=== PATIENT | male | born 1950 | race Caucasian/White ===

== ENCOUNTER 2016-10-13 23:15 | Observation (INO) | payer OTHER, MEDICARE ==
[~2016-10-13] VITALS: Ht 170.2 cm; Wt 91.3 kg
[2016-10-13 23:25] VITALS: BP 153/65; PULSE 78; RESP 11; O2SAT 99
--- NOTE | 2016-10-13 23:32 | ED.REPORT ---
HPI-General Illness Date of Service Oct 13, 2016 ED Provider: Elton Glover MD Patient is an otherwise healthy 65 year old male who presents to the ED via EMS complaining of an episode of palpitations that awoke him from his sleep at 2230 this evening. The episode lasted for 15-20 minutes. He reported being asymptomatic but had an episode upon subsequent examination. Associated symptoms include lightheadedness. He denies chest pain, SOB, extremity swelling , or any other symptoms. Per family, he has not been feeling well for the past month. His symptoms have included palpitations and nausea. His PCP told him that his red blood cell count has decreased by 7-8 points from a year ago. An echocardiogram from a year ago reports that he has aortic stenosis. Nursing Notes Stated Complaint: HEART RACING Chief Complaint: Chest Pain Nursing Notes Reviewed: Yes Allergies: Coded Allergies: No Known Allergies (Unverified , 10/13/16) General Time Seen by MD: 23:30 Chief Complaint Other (Palpitations ) Hx Obtained From: Patient Arrived By: Ambulance Sudden in Onset?: Yes Onset Occurred: 1 - 4 hours ago Similar Sx Previous: Yes Past Medical History ECHO 08/30/15: Interpretation Summary The left ventricle is normal in size. The ejection fraction is estimated to be 55-60%. There appears to be severe mid posterolateral hypokinesis. The right ventricle is normal in size and function. The left atrium is mildly dilated. The aortic valve appears to be bicuspid. The aortic valve is moderately calcified. The peak aortic velocity is 388.4 cm/sec. The aortic valve mean gradient is 36.6 mmHg. The aortic valve area is 1.2 sq cm by planimetry. The calculated aortic valve area is 1.2 sq cm. There is moderate aortic stenosis based on above criterias. The aortic root is mildly dilated. The ascending aorta is moderately enlarged. The IVC is of normal diameter and collapses greater than 50% with a sniff. This suggests a low right atrial pressure of 3 mm Hg. There is a trivial to small pericardial effusion noted. There are no echocardiographic indications of cardiac tamponade. I do not see any obvious vegetation. Consider IDA and aorta evauation by CT or MR. If indeed patient has bicuspid aortic valve, consider family members screening. Past Medical History Aortic stenosis Past Surgical History None reported Smoking History Unknown if Ever Smoker Social History Other Social History: Good social support Ambulatory Status Independent Review of Systems Full Review of Systems Respiratory: Denies: Shortness of breath Cardiovascular: Reports: Palpitations, Denies: Chest pain Musculoskeletal: Denies: Extremity swelling Neurologic: Reports: Lightheaded Complete sys rev & neg: except as marked. Physical Exam Nursing note and vitals reviewed. Constitutional: Well-developed, well-nourished. Not diaphoretic. Head: Normocephalic and atraumatic. Mouth/Throat: Oropharynx is clear and moist. No oropharyngeal exudate. Eyes: EOM are normal. Pupils are equal, round, and reactive to light. Neck: Supple, no tracheal deviation. Cardiovascular: Normal rate, regular rhythm. Equal and intact distal pulses throughout. 2/6 systolic murmur. Pulmonary/Chest: Effort normal and breath sounds normal. No respiratory distress. Abdominal: Soft. No distension. There is no tenderness rebound, or guarding. Bowel sounds present. Musculoskeletal: Range of motion grossly intact, moving all extremities. No edema or tenderness appreciated. Neurological: AOx3. Grossly nonfocal exam. Strength and sensation intact and equal to bilateral upper and lower extremities. Skin: Warm and dry, no rashes or pallor appreciated. Psychiatric: Appropriate mood and affect. Behavior appears normal. Vital Signs Vital Signs Date Time Temp Pulse Resp B/P Pulse Ox O2 Delivery O2 Flow Rate FiO2 10/14/16 02:11 36.8 77 9 138/63 98 Room Air 10/14/16 01:12 76 10 133/58 98 Room Air 10/14/16 00:47 79 10 133/53 98 Room Air 10/13/16 23:25 36.7 78 11 153/65 99 Room Air Initial VS: Reviewed, Vital signs abnormal Interpretation & Diagnostics Lab Results Interpretation Result Diagram: 10/13/16 2330 10/13/16 2330 Test 10/13/16 23:30 10/14/16 02:00 White Blood Count 5.7th/mm3 (3.8-10.1) Red Blood Count 4.22mil/mm3 (4.40-5.80) Hemoglobin 13.5g/dL (13.8-17.2) Hematocrit 39.3% (41.0-50.0) Mean Corpuscular Volume 93.1fL (81-100) Mean Corpuscular Hemoglobin 32.0pg (27.0-35.0) Mean Corpuscular Hemoglobin Concent 34.4% (32.0-37.0) Red Cell Distribution Width 12.4% (12.3-15.4) Platelet Count 258bil/L (150-400) Neutrophils (%) (Auto) 39.1% (40-74) Lymphocytes (%) (Auto) 40.8% (14-46) Monocytes (%) (Auto) 14.8% (4-12) Eosinophils (%) (Auto) 4.2% (0-5) Basophils (%) (Auto) 0.9% (0-3) Hold Purple Top Tube Received (Received) Hold Blue Top Tube Received (Received) Sodium Level 134mEq/L (134-144) Potassium Level 3.8mEq/L (3.5-5.2) Chloride Level 97mEq/L (97-108) Carbon Dioxide Level 24mmol/L (18-29) Blood Urea Nitrogen 9mg/dL (8-27) Creatinine 0.79mg/dL (0.76-1.27) Estimat Glomerular Filtration Rate 105mL/min (>59) Glucose Level 107mg/dL (60-99) Calcium Level 9.2mg/dL (8.5-10.1) Magnesium Level 2.4mg/dL (1.6-2.6) Total Bilirubin 0.3mg/dL (0.0-1.2) Aspartate Amino Transf (AST/SGOT) 22U/L (0-50) Alanine Aminotransferase (ALT/SGPT) 25U/L (0-44) Alkaline Phosphatase 58U/L (25-160) Troponin T 0.010ug/L (0.0-0.011) Total Protein 7.0g/dL (6.4-8.4) Albumin 4.3g/dL (3.4-5.0) Hold Red Top Tube Received (Received) Hold [place] Top Tube Received (Received) Hold Urine Received (Received) ECG Interpretation ECG Interpretation: Sinus rate 78 Time: 23:24 Interpreted by: ED physician X-Ray Chest Interpretation Chest Xray Interpretation: no acute abnormalities no obvious consolidation View: Portable, 1 view Interpretation / Wet Read by: Interpret - ED physician Re-Eval/Medical Decision Med Decision/Clinical Course 65-year-old male presenting to the ED for evaluation of palpitations and near- syncope. The patient reportedly has an unremarkable past medical history with the exception of an echocardiogram last year that showed severe mid posterolateral hypokinesis and moderate aortic stenosis. His clinical history seems consistent with possible SVT, however he had an episode here without change on the monitor. No chest pain, no acute ischemic changes on EKG, initial troponin negative. However, given his echocardiographic findings in the past, plan admission for further evaluation and management, cardiology consultation. Patient agreeable to the plan as stated, no further questions. Time of Eval: 01:39 Re-Evaluation/Progress Note: Discussed plan for admission. Patient understands and agrees with plan. All questions addressed at this time. Consultation #1: Referral / Consult Name: Michelle Rubio MD Consulted With: Cardiology Call Returned at: 01:58 Wildlife Biology Technician: Agrees with eval, Agrees with plan Note: Discussed pt's case. Will consult Consultation #2: Referral / Consult Name: Nguyễn Jewell MD Consulted With: Hospitalist Call Returned at: 14:08 Wildlife Biology Technician: Will see patient, Agrees with eval, Agrees with plan, Accepts admit Note: Discussed pt's case. Accepts admit. Counseled Regarding: Diagnosis, Lab results, Need for admission Discharge & Departure Primary Impression: Palpitations Additional Impression: Near syncope Disposition: ADMITTED TO HOSPITAL Discharge Condition All VS Reviewed: Yes Condition: Stable Referrals: Jose Alvarado DO (PCP) Scribe Attestation Portions of this note were transcribed by Aliyah Navarrete. I, Dr. Glover personally performed the history, physical exam and medical decision-making; I reviewed and confirmed the accuracy of the information in the transcribed note. Signed by: Aliyah Navarrete 10/14/16, [id number] copies to: Jose Alvarado William B MD Oct 13, 2016 23:32 ALIYAH NAVARRETE Oct 14, 2016 00:43
[2016-10-14] VITALS (12 sets, daily range): BP systolic 111–138; BP diastolic 53–74; PULSE 61–79; RESP 9–20; O2SAT 97–99
[2016-10-14 00:16] LABS: BASOPHILS % (AUTO) 0.9 % (0-3); EOSINOPHILS % (AUTO) 4.2 % (0-5); MONOCYTES % (AUTO) 14.8 % (4-12); Mean Corpuscular Volume 93.1 fL (81-100); NEUTROPHILS % (AUTO) 39.1 % (40-74); Platelet Count 258 bil/L (150-400)
[2016-10-14 00:28] LABS: TROPONIN T 0.01 ug/L (0.0-0.011)
[2016-10-14 00:39] LABS: Magnesium 2.4 mg/dL (1.6-2.6)
[2016-10-14] MEDS ORDERED: Alum-Mag Hydrox-Simeth 30 mL Suspension PO PRN (02:30)
[2016-10-14] MEDS ORDERED: Ondansetron 2 mg/mL 2 mL Inj IVPUSH PRN (02:30)
[2016-10-14] MEDS ORDERED: Polyethylene Glycol (PEG) 17 Gm Powder PO PRN (02:30)
[2016-10-14] MEDS ORDERED: 0.9% Sodium Chloride 1,000 ML IV ONE (02:35)
--- NOTE | 2016-10-14 02:59 | PCM.HPMED ---
Subjective Date of Service Oct 14, 2016 Primary Provider: Admitting Physician: Nguyễn Jewell MD Primary Care Physician: Salomón Silverman MD Attending Physician: Nguyễn Jewell MD Chief Complaint: palpitations History of Present Illness: Extremity 5-year-old gentleman with history of aortic stenosis presents of [facility] emergency department via EMS after waking up with sensation of palpitations, diaphoresis, lightheadedness. Symptoms abated before EMS arrived. States he had a similar episode in the past however did not seek medical attention at the time. Non-smoker, no EtOH, or drug use reported. He has no medications and only takes "a liquid antacid. He additionally reports some queasiness but would not call it nausea area and no diarrhea or constipation, no rashes, no weight loss, no heat or cold intolerance, no lani chest pain. States a year ago they found traces of blood in his stool, and is still waiting for colonoscopy. In the emergency department is afebrile, heart rate 78, respiratory rate 11, blood pressure 153/65, pulse ox 99% on room air. EKG showed normal sinus rhythm, no signs of acute ischemia or infarct, normal axis, no AVCD. CMP and CBC were unremarkable, troponin negative Check stat x-ray did not show any acute cardiopulmonary process All in the department patient remained a symptomatically. Cardiology agronomy advisor was consulted, agreed the patient should be monitored overnight and will be seen in the morning. Review of Systems: A comprehensive review of systems was conducted with the patient and found to be negative except as above in the history of presenting illness. Allergies Coded Allergies: No Known Allergies (Unverified , 10/13/16) Home Medications "Liquid antacid" PMH History of hypertension, no longer on medication. Surgical History Ganglion cyst removal from right wrist in childhood Family History Mother needed a valve replacement, and past during recovery from the operation Father is alive, no known medical problems. Social History Hx Alcohol Use: Yes (no drink in one year) Hx Substance Use: No Hx Tobacco Use: No Smoking Status: Unknown if Ever Smoker Living Arrangement: with Family Exam Vital Signs Vital Sign - Last Date Time Temp Pulse Resp B/P Pulse Ox O2 Delivery O2 Flow Rate FiO2 10/14/16 02:11 36.8 77 9 138/63 98 Room Air Exam General: Laying in bed, no apparent distress. HEENT: Normocephalic, atraumatic, EOMI grossly, Cardiovascular: Regular rate and rhythm, 3 out of 6 blowing systolic murmur best at right upper sternal border, peripheral pulses 2/4 equal bilaterally Pulmonary: Clear to auscultation bilaterally, no W/R/R. Abdominal: Soft to palpation, bowel sounds present 4, no hepatosplenomegaly. Negative rebound. Extremities: No edema appreciated. No tenderness, asymmetry. Neuro: Neurologically grossly intact, strength is equal bilaterally upper and lower extremities. MSK: Gait is normal, able to move extremities on their own volition, strength 5 out of 5 equal bilaterally to upper and lower extremities. Lab and Diagnostics Result Diagram: 10/13/16 2330 10/13/16 2330 X-Rays, CTs and MRIs Chest Xray Interpretation: no acute abnormalities no obvious consolidation View: Portable, 1 view Interpretation / Wet Read by: Interpret - ED physician 12-lead ECG Sinus rhythm, heart rate 78, normal axis, inverted T waves V1, Cardiac Echo Impressions ECHO 08/30/15: Interpretation Summary The left ventricle is normal in size. The ejection fraction is estimated to be 55-60%. There appears to be severe mid posterolateral hypokinesis. The right ventricle is normal in size and function. The left atrium is mildly dilated. The aortic valve appears to be bicuspid. The aortic valve is moderately calcified. The peak aortic velocity is 388.4 cm/sec. The aortic valve mean gradient is 36.6 mmHg. The aortic valve area is 1.2 sq cm by planimetry. The calculated aortic valve area is 1.2 sq cm. There is moderate aortic stenosis based on above criterias. The aortic root is mildly dilated. The ascending aorta is moderately enlarged. The IVC is of normal diameter and collapses greater than 50% with a sniff. This suggests a low right atrial pressure of 3 mm Hg. There is a trivial to small pericardial effusion noted. There are no echocardiographic indications of cardiac tamponade. I do not see any obvious vegetation. Assessment & Plan 65-year-old gentleman with distant history of hypertension, aortic stenosis, presents with 15-20 minute episode of palpitations with lightheadedness and dizziness, Acute palpitations, not present on admission, active Rhythm throughout ER visit was sinus, no reproduction of symptoms in the presence of known aortic stenosis. Symptoms coincided with palpitations, differentials includes nonsustained SVT, or VT, paroxysmal A. fib, panic attack, Troponins negative, EKG did not show any signs of infarction or ischemia, no AV conduction delay. TSH + T4 pending Troponin negative Dr. Fernández cardiology consulted, per ER physician documentation increased to see patient in the morning. Echocardiogram Place on telemetry EKG, chest x-ray were reviewed fully and independently. Near syncope, not present on admission, active. Evaluation as above Repeat CMP and CBC in the morning Moderate Aortic stenosis, Chronic will follow echo to determine any advancement Patient admitted under separation status with expected length of stay < 2 midnights for severity of present symptoms, complexities of treatment plan and risk for adverse events Pain Evaluation: Adequate Pain Control GI Prophylaxis: Not indicated VTE Prophylaxis: Sub-Q Heparin (Unfractionated) Resuscitation Status: CPR: Attempt Resuscitation Attending Statement The patient was seen and examined together with Dr. Puentes on 10/14 and I agree with the history, exam and plan as outlined in the note above. Param Gallegos DO Oct 14, 2016 02:59 Nguyễn Jewell MD Oct 14, 2016 06:39
[2016-10-14] MEDS: Heparin 5,000 Unit/mL Inj SUBQ SCH ×3 (03:30→18:43)
[2016-10-14 03:48] LABS: APPEARANCE,URINE CLEAR (CLEAR,HAZY); COLOR,URINE STRAW (YELLOW)
[2016-10-14 03:49] LABS: OCCULT BLOOD,URINE NEGATIVE (NEGATIVE); UROBILINOGEN,URINE NORMAL (NORMAL)
--- NOTE | 2016-10-14 04:57 | NUR ---
Admit: Pt arrived to room 3007 from ED via stretcher; ambulated self to scale and bed, no family at bedside. Pt AOx3, appropriate with questions, tele, IVF started. Pt denies taking any home medications, denies pain, chest pain and SOB. Pt pleasant and cooperative with care. Admit complete.
[2016-10-14 05:20] LABS: BASOPHILS % (AUTO) 0.7 % (0-3); EOSINOPHILS % (AUTO) 4.2 % (0-5); MONOCYTES % (AUTO) 13.4 % (4-12); Mean Corpuscular Hemoglobin 32.4 pg (27.0-35.0); NEUTROPHILS % (AUTO) 52.6 % (40-74); Platelet Count 248 bil/L (150-400)
[2016-10-14 05:52] LABS: Magnesium 2.4 mg/dL (1.6-2.6); TROPONIN T 0.01 ug/L (0.0-0.011)
[2016-10-14] MEDS: 0.9% Sodium Chloride 1,000 ML IV SCH ×3 (08:23→22:30)
--- NOTE | 2016-10-14 08:27 | DRSVH ---
PROCEDURE: X-RAY CHEST ONE VIEW, PORTABLE ([id number]) INDICATIONS: chest pain TECHNIQUE: One view of the chest was acquired. COMPARISON: [facility], CR, XR CHEST 2VW, 07/24/2015, 9:52. FINDINGS: Surgical changes and devices: None. Lungs and pleura: No pleural effusions or pneumothorax. Focal patchy consolidative opacity projects in the left lung base, measuring approximately 2 cm. Mediastinum: Mediastinal contours appear normal. Heart size is normal. Bones and chest wall: No suspicious bony lesions. Overlying soft tissues appear unremarkable. IMPRESSION: Focal left basilar patchy consolidative opacity which could represent bronchopneumonia although recom mend clinical correlation, and radiographic followup in one month to document resolution after treatm ent to exclude pulmonary nodule. Dictated by: Israel Mckenzie M.D. on 10/14/2016 at 8:24 Approved by: Israel Mckenzie M.D. on 10/14/2016 at 8:25
--- NOTE | 2016-10-14 09:56 | PCM.CHPCAR ---
Consult Subjective Date of service Oct 14, 2016 Date of admit Oct 14, 2016 at 02:26 Provider Requesting Consult Requesting Provider: Param Gallegos DO Primary Care Physician Primary Care Physician: Salomón Silverman MD Chief Complaint Palpitations History of Present Illness This is a pleasant 65 y/o male with suddent onset of palpitations last night for the first time. He has had palpitations that were not sustained in the past. But, this one lasted for about 5-10 min w/o stopping. He had lightheadedness associated with palpitations. He denied any CP, SOB, near syncope or syncope. He has chronic anemia as per patient. He is being tentatively scheduled for upper and lower scope. He sees Dr. Silverman. He denies any orthopnea or PND. He has hx of moderate aortic stenosis and regional wall motion abnormalities based on a prior echo in 2016. He has not had any ischemic workup in the past. He denies any exertional chest pain. His monitor has not shown any SVTs or Afib. He was on ASA 81 mg once a day but due to his worsening anemia, his ASA was discontinued. He is otherwise feeling well and so far his EKGs have not shown any significant arrhythmia. Review of Systems General: Denies: Change in exercise capacity Energy Fatigue Eyes: Denies: Problem or recent change in eyes Ears, Nose, Mouth & Throat: Denies: Any hearing loss Epistaxis or hoarseness Respiratory: Denies: Orthopnea or PND Significant dyspnea Cardiovascular: Reports: Lightheadedness Skipped beats Tachycardia Denies: Chest Discomfort Presyncope Syncopal episodes Gastrointestinal: Reports: Abdominal fullness Dyspepsia Denies: Black stools GI blood loss Melana Recent melena or hematochezia Ulcers or GI blood loss Genitourinary: Denies: Hematuria Prostate symptoms Urinary symptoms Musculoskeletal: Reports: Joint pain Denies: Joint swelling Neurological: Denies: Any history of stroke/TIA symptoms Dizziness Expressive dysphasia Memory deficit Personality change Psychiatric: Denies: Anxiety Depression Endocrine: Denies: Heat or cold intolerance Polyuria or Polydipsia Integumentary: Denies: Any change in hair or nails Any rash or skin lesions Hematologic/Immunologic: Reports: Recent history of anemia Denies: Risk factors for HIV Unusual bruising or bleeding PMH Past Medical History History of hypertension, no longer on medication. No Active Prescriptions or Reported Meds Current Inpatient Medications Current Medications Heparin Sodium (Porcine) 5000 unit 5,000 unit Q8 SUBQ Last administered on 03:30; Admin Dose 5,000 UNIT; Start 10/14/16 at 02:30 Sodium Chloride 1,000 ml @ 100 mls/hr Q10H IV Last administered on 10/14/16 08 :23; Admin Dose 100 MLS/HR; Start 10/14/16 at 02:30 Al Hydrox/Mg Hydrox/Simethicone 30 ml Q6H PRN PO; Start 10/14/16 at 02:30 Ondansetron HCl 4 to 8 mg Q4H PRN IVPUSH; Start 10/14/16 at 02:30 Senna 17.2 mg BID PRN PO; Start 10/14/16 at 02:30 Polyethylene Glycol 17 gm DAILY PRN PO; Start 10/14/16 at 02:30 Allergies: Coded Allergies: No Known Allergies (Unverified , 10/13/16) Family History Family History Mother needed a valve replacement, and past during recovery from the operation Father is alive, no known medical problems. Social History Hx Alcohol Use: No (no drink in one year)Hx Substance Use: NoHx Tobacco Use: No Smoking Status: Unknown if Ever Smoker Living Arrangement: with Family Exam Vital Signs Vital Sign - Last Date Time Temp Pulse Resp B/P Pulse Ox O2 Delivery O2 Flow Rate FiO2 10/14/16 08:57 36.6 72 20 138/74 98 Room Air Intake and Output 10/13/16 10/13/16 10/14/16 Cumulative From/Thru 15:00 23:00 07:00 10/13/16 23:25 - 10/14/16 05:40 Intake Total 200 ml 200 ml Output Total 300 ml 300 ml Balance -100 ml -100 ml Intake Oral 200 ml 200 ml Output Urine Total 300 ml 300 ml # Bowel Movements 0 0 General: Pleasant Cooperative Skin: Warm & dry to touch Head: Normocephalic No tenderness Eye: EOMS intact No arcus or xanthelasma Neck: No JVD No bruits Ears, Nose & Throat: Ears no gross abnormalities Nose no gross abnormalities Chest: Clear auscultation w/o rales/wheeze Cardiac: Normal non-displaced apical impulse Normal S1 and S2 Systolic murmur (3/6) Pulses: Pulses full/equal all extremities Abdomen: Soft, non-distended, non-tender Without masses or organomegally Lymphatic: No palpable lymphadenopathy Extremities: Warm w/o deformities,erythema noted Neurological: Alert & oriented No gross motor or sensory deficits Psychological: Affect & interaction appropriate Memory grossly intact Lab and Diagnostics Labs CBC Test 10/13/16 23:30 10/14/16 05:07 Hold Purple Top Tube Received (Received) White Blood Count 4.3th/mm3 (3.8-10.1) Red Blood Count 4.01mil/mm3 (4.40-5.80) Hemoglobin 13.0g/dL (13.8-17.2) Hematocrit 37.3% (41.0-50.0) Mean Corpuscular Volume 93.0fL (81-100) Mean Corpuscular Hemoglobin 32.4pg (27.0-35.0) Mean Corpuscular Hemoglobin Concent 34.9% (32.0-37.0) Red Cell Distribution Width 12.2% (12.3-15.4) Platelet Count 248bil/L (150-400) Neutrophils (%) (Auto) 52.6% (40-74) Lymphocytes (%) (Auto) 29.1% (14-46) Monocytes (%) (Auto) 13.4% (4-12) Eosinophils (%) (Auto) 4.2% (0-5) Basophils (%) (Auto) 0.7% (0-3) CMP Test 10/13/16 23:30 10/14/16 05:07 Thyroid Stimulating Hormone (TSH) 5.880uIU/mL Free Thyroxine 1.25ng/dL Hold Red Top Tube Received Hold Liguori Top Tube Received Sodium Level 137mEq/L Potassium Level 4.4mEq/L Chloride Level 102mEq/L Carbon Dioxide Level 23mmol/L Blood Urea Nitrogen 8mg/dL Creatinine 0.69mg/dL Estimat Glomerular Filtration Rate 122mL/min Glucose Level 116mg/dL Calcium Level 8.8mg/dL Magnesium Level 2.4mg/dL Total Bilirubin 0.3mg/dL Aspartate Amino Transf (AST/SGOT) 20U/L Alanine Aminotransferase (ALT/SGPT) 23U/L Alkaline Phosphatase 53U/L Troponin T 0.010ug/L Total Protein 6.3g/dL Albumin 3.9g/dL Result Diagram: 10/14/16 0507 10/14/16 0507 X-Rays, CTs and MRIs Date of Service: 10/14/16 0006 PROCEDURE: X-RAY CHEST ONE VIEW, PORTABLE ([id number]) INDICATIONS: chest pain TECHNIQUE: One view of the chest was acquired. COMPARISON: MERGED WITH [facility], CR, XR CHEST 2VW, 07/24/2015, 9:52. FINDINGS: Surgical changes and devices: None. Lungs and pleura: No pleural effusions or pneumothorax. Focal patchy consolidative opacity projects in the left lung base, measuring approximately 2 cm. Mediastinum: Mediastinal contours appear normal. Heart size is normal. Bones and chest wall: No suspicious bony lesions. Overlying soft tissues appear unremarkable. IMPRESSION: Focal left basilar patchy consolidative opacity which could represent bronchopneumonia although recommend clinical correlation, and radiographic followup in one month to document resolution after treatment to exclude pulmonary nodule. Additional Diagnostics: Echocardiogram Report Name: TRES ZENDEJAS Scott e: 08/30/2015 Height: 67 in Hospital Exam Location: [facility] Weight: 235 lb Gender: Male BSA: 2.2 m2 : 1950 Age: 64 yrs BP: 138/65 mmHg Reason For Study: CARDIOMYOPATHY, MURMUR Ordering Physician: Performed By: Jonny Mattson Interpretation Summary The left ventricle is normal in size. The ejection fraction is estimated to be 55-60%. There appears to be severe mid posterolateral hypokinesis. The right ventricle is normal in size and function. The left atrium is mildly dilated. The aortic valve appears to be bicuspid. The aortic valve is moderately calcified. The peak aortic velocity is 388.4 cm/sec. The aortic valve mean gradient is 36.6 mmHg. The aortic valve area is 1.2 sq cm by planimetry. The calculated aortic valve area is 1.2 sq cm. There is moderate aortic stenosis based on above criterias. The aortic root is mildly dilated. The ascending aorta is moderately enlarged. The IVC is of normal diameter and collapses greater than 50% with a sniff. This suggests a low right atrial pressure of 3 mm Hg. There is a trivial to small pericardial effusion noted. There are no echocardiographic indications of cardiac tamponade. I do not see any obvious vegetation. Consider IDA and aorta evauation by CT or MR. If indeed patient has bicuspid aortic valve, consider family members screening. Assessment & Plan Problems: (1) Paroxysmal SVT (supraventricular tachycardia) Plan: Resolved. Most likely the cause for this Sx's. If he has recurrent episodes then consider starting low dose metoprolol or Diltiazem CD. I would recommend ASA 325 mg once a day in case this is A-fib. However, apparently he has worsening anemia so he was taken off of his aspirin recently. He is tentatively being scheduled for GI w/u which I would strongly recommend. If his monitor doesn't capture either one during this hospitalization then recommend outpatient monitor. I would continue to monitor him as observation until he has his echo completed. If his echo shows no new findings then he may go home and follow-up with his PCP and would consider outpatient cardiology consult to follow up on his aortic stenosis. He will eventually need AVR probably within the next 5 years. Status: Resolved ICD Code: I47.1 (2) Moderate aortic stenosis Plan: Awaiting echocardiogram. If no significant changes then he may go home. Indications for aortic valve surgery is either critical w/o or w/symptoms, or severe with symptoms. He clearly does not have either one of these. His recent episode of lightheadedness was not primarily caused by his but it certainly did not help during his tachycardia episode. We discussed that sooner or later he will need AVR. On top of this, if indeed he has LV wall motion abnormalities but his troponins are negative then consider outpatient ischemic workup such as stress echo or exercise sestamibi. Status: Chronic ICD Code: I35.0 (3) Palpitations Plan: Again, if we do not catch any of his arrhythmia during this hospitalization but continues to have these episodes as outpatient then consider an AV joesph loly such as beta loly or calcium channel loly. For now, I would not start him on it but simply monitor for any recurrent symptoms. Patient agrees with the plan. For now, I will sign off on this case but if I can be any further assistance please do not hesitate to contact me. Status: Resolved ICD Code: R00.2 Pain Evaluation: Adequate Pain Control VTE Prophylaxis: Sub-Q Heparin (Unfractionated) VTE Mechanical Devices: Intermittant Pneumatic CD Resuscitation Status: CPR: Attempt Resuscitation Time spent 60 min. Copies to: Salomón Silverman MD, Oscar J MD Oct 14, 2016 09:56
--- NOTE | 2016-10-14 09:58 | NUR ---
Case Management:DIANE given and explained to pt. Merle HEARTRN
--- NOTE | 2016-10-14 15:47 | DRSVH ---
[facility] [address] [place] [address] Echocardiogram Report Name: TRES ZENDEJAS Scott e: 10/14/2016 Height: 67 in Hospital Exam Location: [facility] Weight: 201 lb Gender: Male BSA: 2.0 m2 : 1950 Age: 65 yrs BP: 135/73 mmHg Reason For Study: NEAR SYNCOPE, PALPITATIONS, AORTIC STENOSIS Ordering Physician: PIPER MITCHELL Performed By: Jonny Mattson Referring Physician: Dr. Salomón Silverman Interpretation Summary There is normal left ventricular wall thickness. The left ventricle is mildly dilated. There is proximal mid posteriolateral wall hypokinesis. The mitral valve leaflets are slightly calcified. There is moderate aortic stenosis. The aortic valve mean gradient is 36.8 mmHg. Compared to the prior echo study, there has been no change in the severity of aortic stenosis. There is mild aortic regurgitation. There is mild tricuspid regurgitation. The right ventricular systolic pressure is estimated at 27 mmHg assuming a right atrial pressure of 3 mm Hg. Procedure: A two-dimensional transthoracic echocardiogram with color flow and Doppler was performed. The study quality was technically good. Comparison is made with the echocardiogram of 08/30/15. The patient was in normal sinus rhythm during the exam. The patient had occasional PACs during the exam. Left Ventricle: There is normal left ventricular wall thickness. The left ventricle is mildly dilated. A false chord is noted (normal variant). The ejection fraction is estimated to be 60-65%. There is proximal mid posteriolateral wall hypokinesis. Right Ventricle: The right ventricle is normal in size and function. Atria: The left atrium is moderately dilated. Right atrial size is normal. The interatrial septum is intact with no evidence for an atrial septal defect. Mitral Valve: There is systolic anterior motion of the chordal apparatus. The mitral valve leaflets are slightly calcified. Redundant elongated chordae are noted. Aortic Valve: The aortic valve is bicuspid. The aortic valve is moderately calcified. The peak aortic velocity is 3.92 m/sec. The aortic valve mean gradient is 36.8 mmHg. The calculated aortic valve area is 1.4 cm2. There is moderate aortic stenosis. Compared to the prior echo study, there has been no change in the severity of aortic stenosis. There is mild aortic regurgitation. There is an eccentric jet of aortic insufficiency directed against the anterior mitral leaflet. Tricuspid Valve: The tricuspid valve is normal in structure and function. There is mild tricuspid regurgitation. The right ventricular systolic pressure is estimated at 27 mmHg assuming a right atrial pressure of 3 mm Hg. Pulmonic Valve: The pulmonic valve is normal in structure and function. There is trace pulmonic regurgitation. Great Vessels: The aortic root is normal size. The ascending aorta is mild- moderately enlarged. The pulmonary artery is normal size. The IVC is of normal diameter and collapses greater than 50% with a sniff. This suggests a low right atrial pressure of 3 mm Hg. Pericardium/ Pleura There is a small pericardial effusion noted. The pericardial effusion has increased since the prior exam. There is no pleural effusion. MMode/2D Measurements & Calculations LVIDd: 6.3 cm LA dimension: 3.7 cm RA long axis LVOT diam: 2.4 cm LVIDs: 4.3 cm AoV Opening FS: 32.3 % LA A2 area: 25.8 cm RA area EPSS: 1.1 cm LA A4 area: 22.6 cm Ao root diam IVSd: 0.87 cm LA length (vol) : 18.6 cm LVPWd: 0.65 cm RA vol Aortic Jxn: 3.3 cm LA vol: 88.2 ml : 53.1 ml asc Aorta Diam LA vol index RA : 26.2 mm2 Ao Arch Diam (Prox Trans): 3.0 cm IVC diam: 1.4 cm LV pizarro. diameter/BSA LV sys. diameter/BSA (cm/m^2): 3.1 (cm/m^2): 2.1 Doppler Measurements & Calculations Ao V2 max MV E max dandre MV E/A: 0.72 TR max dandre : 392.3 cm/sec : 82.5 cm/sec Med Peak E' Dandre : 243.0 cm/sec Ao max P.5 mmHg MV A max dandre TR max PG Ao mean P.8 mmH.0 cm/sec E/E' med: 16.0 : 23.6 mmHg LVOT Max Dandre Lat Peak E' Dandre PA V2 max : 93.4 cm/sec : 96.8 cm/sec E/E' lat: 19.1 PA mean PG STAR(I,D): 1.4 cm E/e' average sev ratio: 0.30 PA Accel Time Pulm A Revs Dur : 0.06 sec MV A dur : 0.12 sec MV dec time: 0.29 secAo V2 mean LV V1 max PG PA V2 mean : 290.9 cm/sec : 71.7 cm/sec Ao V2 VTI: 88.6 cm LV V1 VTI PA pr(Accel) : 26.9 cm : 49.9 mmHg STAR(V,D): 1.1 cm2 STAR indexed to BSA Pulm A Revs Dur - MV (cm^2/m^2): 0.67 A Dur: 0.00 msec Electronically signed by: Scotty Agudelo on Reading Physician:10/14/2016 03:46 PM
--- NOTE | 2016-10-14 15:52 | NUR ---
Social Work-initial assessment/ readiness for discharge: Data:See initial assessment. Pt is a 65 y/o male who was admitted on 10/14/16 for near syncope per H&P. Pt's insurance is [employer] out of [place] and [facility] and PCP is Salomón Silverman MD. EMR reviewed. SW met with pt and daughter at bedside, SW role explained. Pt is alert and oriented x3. Pt resides at home with his in [place] where he remains independent with ADLs. Pt drives and does not use any DME. Pt has no HH or SNF history. Pt has no care home care insurance or VA benefits. SW discussed DPOA/ advanced directive, pt has not completed this and declined any information. Pt confirms his or daughter will provide transport home. Per RN notes, pt has been up independent in his room. SW provided phone number and plan on white board in room. No discharge needs identified. SW will continue to follow if needs arise. Assessment:Pt who is independent at baseline. Plan:Pt who will discharge home when medically stable via POV. No discharge needs identified. SW will continue to follow if needs arise. JAIMEE Palencia Addendum: 10/14/16 at 1557 by RAYRAY FALL Amended: Links added.
--- NOTE | 2016-10-14 19:25 | NUR ---
Ambulation Uneventful dayshift. Pt very pleasant and cooperative. Pt had no syncopal episodes during shift. Instructed to use call light for ambulation to bathroom. Pt follows instructions. Strong and steady on feet. Denies any dizziness.
[2016-10-15] MEDS: Heparin 5,000 Unit/mL Inj SUBQ SCH ×2 (01:09→08:30)
[2016-10-15 01:28] VITALS: BP 118/71; PULSE 64; RESP 17; O2SAT 98
[2016-10-15 03:28] VITALS: PULSE 74
[2016-10-15] MEDS: 0.9% Sodium Chloride 1,000 ML IV SCH (04:16)
[2016-10-15 04:46] VITALS: BP 117/70; PULSE 57; RESP 18; O2SAT 95
--- NOTE | 2016-10-15 04:47 | NUR ---
[employer] tech called at 0435 and reported that patient's heart rate is slowly trending down, sustaining high 40-low 50's, with occasional dips to 38-39. Patient was sleeping at the time. Woke him up, vitals stable, patient denies symptoms of bradycardia. paged with telemetry's information.
[2016-10-15 08:31] VITALS: BP 128/67; PULSE 80; RESP 18; O2SAT 98
--- NOTE | 2016-10-15 09:15 | PCM.DIMED ---
Discharge Instructions Date of Service Oct 15, 2016 Dates of Hospitalization Oct 14, 2016 at 02:26 Discharge Diagnosis Discharge Diagnosis #Acute palpitations due to suspected paroxysmal SVT, resolved #Near syncope due to above, not present on admission, resolved #Moderate Aortic stenosis, Chronic Diet Discharge Diet: No restrictions Activity Discharge Activity: Limited until seen by PCP Call your provider Call your provider for: Fever or Chills, Shortness of breath, Bleeding, Chest pain, Vomitting, Excessive diarrhea, Weakness (unilateral) Patient Instructions Patient Instructions You were hospitalized due to palpitation and near syncope. Seems to be due to paroxysmal SVT. Telemetry did not show any significant arrhythmia. Echocardiogram is unchanged from prior study. Symptoms have resolved. Please follow-up with PCP in 1 week. PCP may consider Holter monitor if symptoms recurs. You may also follow-up with Dr Juarez ( manager child who has evaluated you in the hospital) if symptoms recur. Follow-up Provider: Salomón Silverman MD Follow-up with PCP in: 1 week Leoncio Regalado MD Oct 15, 2016 09:15
--- NOTE | 2016-10-15 10:11 | NUR ---
Social Work-discharge: Data:EMR Reviewed. Pt is on day 1 of hospitalization for syncope per H&P. Pt is medically stable for discharge. Pt has been up independent in his room. Pt's family to provide transport home. No discharge needs identified. All updated and agreeable to plan. Assessment:Pt who is independent at baseline. Plan:Pt to discharge home today via POV. No discharge needs identified. All updated and agreeable to plan. JAIMEE Palencia
--- NOTE | 2016-10-15 10:12 | PCM.DC.MED ---
Discharge Summary Date of Service Oct 15, 2016 Dates of Hospitalization Date of Hospital Admission Oct 14, 2016 at 02:26 Date of Discharge: Oct 15, 2016 Providers: Admitting Physician: Nguyễn Jewell MD Primary Care Physician: Salomón Silverman MD Attending Physician: Nguyễn Jewell MD Diagnosis at Time of Discharge Diagnosis at Time of Discharge #Acute palpitations due to suspected paroxysmal SVT, resolved #Near syncope due to above, not present on admission, resolved #Moderate Aortic stenosis, Chronic Consultations Buckle [employer] Procedures XRay, CTs & MRIs Chest Xray Interpretation: no acute abnormalities no obvious consolidation View: Portable, 1 view Interpretation / Wet Read by: Interpret - ED physician ECG 12 Lead Sinus rhythm, heart rate 78, normal axis, inverted T waves V1, Cardiac Echo Impression ECHO 08/30/15: Interpretation Summary The left ventricle is normal in size. The ejection fraction is estimated to be 55-60%. There appears to be severe mid posterolateral hypokinesis. The right ventricle is normal in size and function. The left atrium is mildly dilated. The aortic valve appears to be bicuspid. The aortic valve is moderately calcified. The peak aortic velocity is 388.4 cm/sec. The aortic valve mean gradient is 36.6 mmHg. The aortic valve area is 1.2 sq cm by planimetry. The calculated aortic valve area is 1.2 sq cm. There is moderate aortic stenosis based on above criterias. The aortic root is mildly dilated. The ascending aorta is moderately enlarged. The IVC is of normal diameter and collapses greater than 50% with a sniff. This suggests a low right atrial pressure of 3 mm Hg. There is a trivial to small pericardial effusion noted. There are no echocardiographic indications of cardiac tamponade. I do not see any obvious vegetation. ECHO 10/14 Interpretation Summary There is normal left ventricular wall thickness. The left ventricle is mildly dilated. There is proximal mid posteriolateral wall hypokinesis. The mitral valve leaflets are slightly calcified. There is moderate aortic stenosis. The aortic valve mean gradient is 36.8 mmHg. Compared to the prior echo study, there has been no change in the severity of aortic stenosis. There is mild aortic regurgitation. There is mild tricuspid regurgitation. The right ventricular systolic pressure is estimated at 27 mmHg assuming a right atrial pressure of 3 mm Hg. Brief History per HPI This is a pleasant 65 y/o male with suddent onset of palpitations last night for the first time. He has had palpitations that were not sustained in the past. But, this one lasted for about 5-10 min w/o stopping. He had lightheadedness associated with palpitations. He denied any CP, SOB, near syncope or syncope. He has chronic anemia as per patient. He is being tentatively scheduled for upper and lower scope. He sees Dr. Silverman. He denies any orthopnea or PND. He has hx of moderate aortic stenosis and regional wall motion abnormalities based on a prior echo in 2016. He has not had any ischemic workup in the past. He denies any exertional chest pain. His monitor has not shown any SVTs or Afib. He was on ASA 81 mg once a day but due to his worsening anemia, his ASA was discontinued. He is otherwise feeling well and so far his EKGs have not shown any significant arrhythmia. Hospital Course 65-year-old gentleman with distant history of hypertension, aortic stenosis, presents with 15-20 minute episode of palpitations with lightheadedness and dizziness, # Acute palpitations due to suspected paroxysmal SVT, not present on admission, resolved Rhythm throughout ER visit and overnight stay was sinus, no reproduction of symptoms in the presence of known aortic stenosis. He had sinus bradycardia at 39 during sleep Troponins negative, EKG did not show any signs of infarction or ischemia, no AV conduction delay. TSH + T4 negative Troponin negative Echocardiogram unchanged telemetry unrevealing Discharged home. Symptoms resolved. PCP may consider Holter monitor if symptoms recur. #Near syncope, not present on admission, active. Evaluation as above #Moderate Aortic stenosis, Chronic echo unchanged from prior study Discharged home Condition on discharge stable Exam Vital Signs (Last) Date Time Temp Pulse Resp B/P Pulse Ox O2 Delivery O2 Flow Rate FiO2 10/15/16 08:31 36.7 80 18 128/67 98 Room Air Exam General: Laying in bed, no apparent distress. HEENT: Normocephalic, atraumatic, EOMI grossly, Cardiovascular: Regular rate and rhythm, 3 out of 6 blowing systolic murmur best at right upper sternal border, peripheral pulses 2/4 equal bilaterally Pulmonary: Clear to auscultation bilaterally, no W/R/R. Abdominal: Soft to palpation, bowel sounds present 4, no hepatosplenomegaly. Negative rebound. Extremities: No edema appreciated. No tenderness, asymmetry. Neuro: Neurologically grossly intact, strength is equal bilaterally upper and lower extremities. MSK: Gait is normal, able to move extremities on their own volition, strength 5 out of 5 equal bilaterally to upper and lower extremit Test 10/13/16 23:30 10/14/16 02:00 10/14/16 05:07 Hold Purple Top Tube Received (Received) Hold Blue Top Tube Received (Received) Thyroid Stimulating Hormone (TSH) 5.880uIU/mL (0.450-4.500) Free Thyroxine 1.25ng/dL (0.82-1.77) Hold Red Top Tube Received (Received) Hold [place] Top Tube Received (Received) Urine Color Straw (YELLOW) Urine Appearance Clear (CLEAR,HAZY) Urine pH 8.0 (5.0-8.0) Urine Specific [place] 1.004 (1.003-1.035) Urine Protein Negativemg/dL (NEG,TRACE) Urine Glucose (UA) Negativemg/dL (NEGATIVE) Urine Ketones Negativemg/dL (NEGATIVE) Urine Occult Blood Negative (NEGATIVE) Urine Nitrite Negative (NEGATIVE) Urine Bilirubin Negative (NEGATIVE) Urine Urobilinogen Normalmg/dL (NORMAL) Urine Leukocyte Esterase Negative (NEGATIVE) Urine RBC 0-2/hpf (0-2) Urine WBC 0-5/hpf (0-5) Urine Epithelial Cells None/hpf (NONE-MOD) Urine Crystals None seen (NONE SEEN) Urine Bacteria None/hpf (NONE-FEW) Urine Hyaline Casts None/lpf (NONE) Urine Granular Casts None seen (NONE SEEN) Urine Waxy Casts None seen (NONE SEEN) Urine Red Blood Cell Casts None seen (NONE SEEN) Urine White Blood Cell Casts None seen (NONE SEEN) Urine Mucus None seen (None Seen) Urine Trichomonas None seen (NONE SEEN) Urine Yeast None (NONE SEEN) Urinalysis Comment None Urine Culture Reflexed Not indicated Hold Urine Received (Received) White Blood Count 4.3th/mm3 (3.8-10.1) Red Blood Count 4.01mil/mm3 (4.40-5.80) Hemoglobin 13.0g/dL (13.8-17.2) Hematocrit 37.3% (41.0-50.0) Mean Corpuscular Volume 93.0fL (81-100) Mean Corpuscular Hemoglobin 32.4pg (27.0-35.0) Mean Corpuscular Hemoglobin Concent 34.9% (32.0-37.0) Red Cell Distribution Width 12.2% (12.3-15.4) Platelet Count 248bil/L (150-400) Neutrophils (%) (Auto) 52.6% (40-74) Lymphocytes (%) (Auto) 29.1% (14-46) Monocytes (%) (Auto) 13.4% (4-12) Eosinophils (%) (Auto) 4.2% (0-5) Basophils (%) (Auto) 0.7% (0-3) Sodium Level 137mEq/L (134-144) Potassium Level 4.4mEq/L (3.5-5.2) Chloride Level 102mEq/L (97-108) Carbon Dioxide Level 23mmol/L (18-29) Blood Urea Nitrogen 8mg/dL (8-27) Creatinine 0.69mg/dL (0.76-1.27) Estimat Glomerular Filtration Rate 122mL/min (>59) Glucose Level 116mg/dL (60-99) Calcium Level 8.8mg/dL (8.5-10.1) Magnesium Level 2.4mg/dL (1.6-2.6) Total Bilirubin 0.3mg/dL (0.0-1.2) Aspartate Amino Transf (AST/SGOT) 20U/L (0-50) Alanine Aminotransferase (ALT/SGPT) 23U/L (0-44) Alkaline Phosphatase 53U/L (25-160) Troponin T 0.010ug/L (0.0-0.011) Total Protein 6.3g/dL (6.4-8.4) Albumin 3.9g/dL (3.4-5.0) Discharge Medications No Active Prescriptions or Reported Meds Followup Plan Disposition: Home Discharge Diet: No restrictions Discharge Activity: Limited until seen by PCP Patient Instructions You were hospitalized due to palpitation and near syncope. Seems to be due to paroxysmal SVT. Telemetry did not show any significant arrhythmia. Echocardiogram is unchanged from prior study. Symptoms have resolved. Please follow-up with PCP in 1 week. PCP may consider Holter monitor if symptoms recurs. You may also follow-up with Dr Juarez ( interventional sale consultant who has evaluated you in the hospital) if symptoms recur. Follow-up Provider: Salomón Silverman MD Follow-up with PCP in: 1 week copies to: Salomón Silverman MD, Melaku MD Oct 15, 2016 10:12
--- NOTE | 2016-10-15 11:53 | NUR ---
Discharge Nursing Note: Patient was discharged to home at 1032. His IV was removed intact. His telemetry was D/Cd . All of his discharge information was reviewed with him and his questions were answered to his satisfaction. Patient was brought to the hospital lobby by nursing staff member and he was driven to home by his .
== END 2016-10-15 10:33 | disposition home or self-care (01) ==
LOC: EDUNIT# 23:15 → SED 23:15 → EDBD 23:15 → MPC 10-14 02:26
PROVIDERS: ADMIT Hospitalist; ATTEND Hospitalist
DX: R00.2 Palpitations (principal); R55 Syncope and collapse; I35.0 Nonrheumatic aortic (valve) stenosis; D64.9 Anemia, unspecified; I10 Essential (primary) hypertension; Z79.82 Long term (current) use of aspirin
CPT/HCPCS: 36415; 71010; 80053; 81000; 83735; 84439; 84443; 84484; 85025; 93005; 99285; C8929; G0378; J1644; J7030